=== PATIENT | female | born 1950 | race Caucasian/White ===

== ENCOUNTER → 2025-08-24 | Outpatient (CLI) | payer OTHER ==
--- NOTE | 2025-08-24 15:41 | HMCIMG ---
STUDY: US Abdomen Complete HISTORY: Unspecified abdominal pain. TECHNIQUE: Real-time ultrasound of the abdomen (complete) with image documentation. COMPARISON: None provided. FINDINGS: LIVER: Normal in size and echotexture with smooth surface contour. No focal lesion or intrahepatic biliary dilatation. GALLBLADDER: Normal in appearance with no gallstones, sludge, or wall thickening. No pericholecystic fluid noted. COMMON BILE DUCT: Normal in caliber with no evidence of biliary dilatation. PANCREAS: Unremarkable where visualized. The distal portion is partially obscured by bowel gas. KIDNEYS: Both kidneys demonstrate normal size, cortical echogenicity, and corticomedullary differentiation. No evidence of hydronephrosis, calculus, or focal lesion. SPLEEN: Normal in size and homogeneous in echotexture. No focal lesion identified. AORTA: Normal caliber. No aneurysmal dilatation. IVC: Patent and unremarkable in appearance. MISCELLANEOUS: No ascites or abnormal fluid collection identified. No other significant findings. IMPRESSION: * Normal gallbladder with no gallstones or wall thickening. * No focal hepatic, pancreatic, splenic, or renal abnormality. * No ascites or biliary dilatation. * Overall, unremarkable abdominal ultrasound study. /[place]
--- NOTE | 2025-08-24 15:48 | HMCIMG ---
EXAM: US Pelvis, Complete CLINICAL HISTORY: Unspecified abdominal pain. TECHNIQUE: Transvaginal and transabdominal pelvic ultrasound (complete) with image documentation. COMPARISON: None provided. FINDINGS: UTERUS/CERVIX: Uterus measures approximately 5.7 ??? 2.4 ??? 3.8 cm. Uterine contour and echotexture appear within normal limits. No fibroid or focal uterine lesion identified. Cervix unremarkable. ENDOMETRIUM: Endometrial thickness measures 5 mm, within normal postmenopausal range. No focal endometrial abnormality or fluid collection noted. RIGHT OVARY: Obscured by bowel gas; not visualized. LEFT OVARY: Obscured by bowel gas; not visualized. CUL-DE-SAC: No free fluid identified. IMPRESSION: * Normal-sized uterus with unremarkable endometrial thickness (5 mm). * Non-visualization of both ovaries due to overlying bowel gas. * No free fluid or acute pelvic abnormality evident. /[place]
== END | disposition home or self-care (01) ==
LOC: RAH 07:59
PROVIDERS: ATTEND Internal Medicine
DX: R10.84 Generalized abdominal pain (principal)
CPT/HCPCS: 76700; 76856

== ENCOUNTER → 2025-09-08 | Outpatient (CLI) | payer OTHER ==
--- NOTE | 2025-09-11 06:04 | HMCIMG ---
EXAM: CR right Knee, 3 View. CLINICAL HISTORY: OSTEOARTHRITIS COMPARISON: None provided. FINDINGS: BONES: No acute fracture or aggressive appearing osseous lesion. The tibial spine shows spiking. JOINTS: The joint spaces show mild osteoarthritis. There is no joint effusion appreciated. SOFT TISSUES: The soft tissues are unremarkable. IMPRESSION: 1. Mild osteoarthritis of the right knee with tibial spine spiking. 2. No acute osseous injury. /[place]
== END | disposition home or self-care (01) ==
LOC: RAH 14:29
PROVIDERS: ATTEND Internal Medicine
DX: M17.11 Unilateral primary osteoarthritis, right knee (principal)
CPT/HCPCS: 73562

== ENCOUNTER → 2025-09-22 | Outpatient (CLI) | payer OTHER | END | disposition home or self-care (01) | LOC: RAH 14:57 | PROVIDERS: ATTEND Internal Medicine | DX: Z12.31 Encounter for screening mammogram for malignant neoplasm of breast (principal) | CPT/HCPCS: 77067 ==